=== PATIENT | female | born 1975 | race Caucasian/White ===

== ENCOUNTER 2019-10-15 20:58 | Emergency (ER) | payer BC ==
--- NOTE | 2019-10-15 22:39 | EDM.PDOC ---
ED HPI GENERAL MEDICAL PROBLEM - General Chief Complaint: Bite:Animal, Insect Stated Complaint: CAT BITE ON LEFT THUMB Time Seen by Provider: 10/15/19 22:15 Source of Information: Reports: Patient History Limitations: Reports: No Limitations - History of Present Illness INITIAL COMMENTS - FREE TEXT/NARRATIVE: Patient is a 44-year-old female who presents with complaints of a cat bite to her left hand. She states that her friend's cat bit her yesterday. Today she developed some tingling to the area as well as some redness and pain. The cat is up-to-date on its vaccinations. She is denies any fever, chills, nausea, or vomiting. 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 Left Hand Pain Score (Numeric/FACES): 7 - Related Data Allergies Allergy/AdvReac Type Severity Reaction Status Date / Time sulfamethoxazole Allergy Severe Swelling Verified 10/15/19 21:30 [From Bactrim] trimethoprim [From Bactrim] Allergy Severe Swelling Verified 10/15/19 21:30 Home Meds: Home Meds Budesonide/Formoterol [Symbicort 160-4.5 MCG] 1 puff INH BID 10/15/19 [History] Levocetirizine Dihydrochloride 5 mg PO DAILY 10/15/19 [History] Montelukast [Singulair] 10 mg PO DAILY 10/15/19 [History] Nabumetone [Relafen Ds] 500 mg PO BID 10/15/19 [History] Past Medical History Respiratory History: Reports: Asthma - Past Surgical History Female Surgical History: Reports: Section Social & Family History - Tobacco Use Smoking Status *Q: Current Every Day Smoker Years of Tobacco use: 24 Packs/Tins Daily: 1 - Caffeine Use Caffeine Use: Reports: Coffee, Soda - Recreational Drug Use Recreational Drug Use: No ED ROS GENERAL - Review of Systems Review Of Systems: Comprehensive ROS is negative, except as noted in HPI. ED EXAM, ANIMAL BITE - Physical Exam Exam: See Below Exam Limited By: No Limitations General Appearance: Alert, WD/WN, No Apparent Distress Respiratory/Chest: No Respiratory Distress, Lungs Clear, Normal Breath Sounds, No Accessory Muscle Use, Chest Non-Tender Cardiovascular: Normal Peripheral Pulses, Regular Rate, Rhythm, No Edema, No Gallop, No JVD, No Murmur, No Rub Extremities: Other (Puncture wound to the MCP joint of the left first finger as well as within the webspace between the first and second finger. Mild redness on the dorsal aspect of the hand directly proximal to the thumb. There is also a small area of redness to the radial aspect of the wrist.) Neurological: Alert, Oriented, CN II-XII Intact, Normal Cognition, Normal Gait, Normal Reflexes, No Motor/Sensory Deficits Psychiatric: Normal Affect, Normal Mood Course - Vital Signs Last Recorded V/S: Last Vital Signs Temp 98.6 F 10/15/19 21:37 Pulse 89 10/15/19 21:37 Resp 20 10/15/19 21:37 BP 121/79 10/15/19 21:37 Pulse Ox 97 10/15/19 21:37 - Re-Assessments/Exams Free Text/Narrative Re-Assessment/Exam: 10/15/19 22:37 Patient is a 44-year-old female who presents with complaints of a cat bite that happened yesterday to her left hand. There is some mild redness, but no obvious swelling. We will start patient on Augmentin twice daily for 10 days. She will be given an [facility] prescription for this. Discharge instructions as documented. Departure - Departure Time of Disposition: 22:37 Disposition: Home, Self-Care 01 Condition: Good Clinical Impression: Cat bite of hand Qualifiers: Encounter type: initial encounter Laterality: left Qualified Code(s): S61.452A - Open bite of left hand, initial encounter; W55.01XA - Bitten by cat, initial encounter - Discharge Information *PRESCRIPTION DRUG MONITORING PROGRAM REVIEWED*: No *COPY OF PRESCRIPTION DRUG MONITORING REPORT IN PATIENT DARLENE: No Instructions: Animal Bite, Adult, [id number] Referrals: PCP,None [Primary Care Provider] - Forms: ED Department Discharge Additional Instructions: You were seen in the emergency department today after being bit by a cat yesterday. On exam, it is likely that you have the start of an infection. You have been started on Augmentin which is an antibiotic. Take this as prescribed for the next 10 days. You may continue to apply ice over the area and elevate the extremity. [id number] Tylenol or ibuprofen may be used for discomfort. Over the next 24 hours, you may sleep is a slight increase in the redness and swelling, however after that you should begin to see improvement. If you experience any worsening symptoms such as increased redness, pain, fever, chills, nausea, or vomiting, you should return to the emergency department or follow-up in the clinic. Sepsis Event Note (ED) - Evaluation Sepsis Screening Result: No Definite Risk
== END 2019-10-15 22:50 | disposition home or self-care (01) ==
LOC: JD.ED 20:58
DX: S61.452A Open bite of left hand, initial encounter (principal); F17.210 Nicotine dependence, cigarettes, uncomplicated; J45.909 Unspecified asthma, uncomplicated; Z98.890 Other specified postprocedural states; Z88.2 Allergy status to sulfonamides; Z79.899 Other long term (current) drug therapy; W55.01XA Bitten by cat, initial encounter
CPT/HCPCS: 99283